=== PATIENT | male | born 1950 | race Caucasian/White ===

== ENCOUNTER 2020-11-27 15:55 | Emergency (ER) | payer OTHER ==
[~2020-11-27] VITALS: Ht 172.7 cm; Wt 74.8 kg
[2020-11-27] MEDS ORDERED: DUI500 PO (19:48)
== END 2020-11-27 19:59 | disposition home or self-care (01) ==
LOC: ER 15:55
DX: R22.31 Localized swelling, mass and lump, right upper limb (principal)